=== PATIENT | female | born 1960 | race Caucasian/White ===

== ENCOUNTER 2018-05-05 00:21 | Emergency (ER) | payer BC | END 2018-05-05 01:35 | disposition home or self-care (01) | LOC: FTE 00:21 | DX: J02.9 Acute pharyngitis, unspecified (principal); Z96.642 Presence of left artificial hip joint | CPT/HCPCS: 99283 ==

== ENCOUNTER → 2018-06-03 | Outpatient (CLI) | payer BC ==
[2018-06-03 10:32] LABS: ADD MAN DIFF? NO
[2018-06-03 10:33] LABS: WHITE BLOOD COUNT 4.4 10^3/ul (4.8-10.8)
[2018-06-03 10:33] LABS: BASOPHILS % 0.7 % (0.0-2.0); EOSINOPHILS # 0.1 10^3/ul (0.0-0.5); EOSINOPHILS % 1.6 % (0.0-7.0); HEMATOCRIT 43.8 % (37.0-47.0); HEMOGLOBIN 13.8 g/dl (12.0-16.0); LYMPHOCYTES # 1.1 10^3/ul (0.8-2.9); LYMPHOCYTES % 25.7 % (15.0-51.0); MEAN CORPUSCULAR HEMOGLOBIN 28.5 pg (29.0-33.0); MEAN CORPUSCULAR HGB CONC 31.5 g/dl (32.0-37.0); MEAN CORPUSCULAR VOLUME 90.3 fl (82.0-101.0); MEAN PLATELET VOLUME 9.1 fl (7.4-10.4); MONOCYTE # 0.3 10^3/ul (0.3-0.9); MONOCYTES % 6.4 % (0.0-11.0); NEUTROPHIL # 2.8 10^3/ul (1.6-7.5); NEUTROPHILS % 65.4 % (39.0-77.0); PLATELET COUNT 163 10^3/UL (140-415); RED BLOOD COUNT 4.85 10^6/ul (4.20-5.40); RED CELL DISTRIBUTION WIDTH 13.6 % (11.5-14.5)
[2018-06-03 10:45] LABS: HEMOGLOBIN A1C 5.4 % (0-5.9)
[2018-06-03 10:52] LABS: ALANINE AMINOTRANSFERASE 23 IU/L (13-69); ALBUMIN 4.7 g/dl (3.3-4.9); ALBUMIN/GLOBULIN RATIO 1.46; ALKALINE PHOSPHATASE 70 IU/L (42-121); ANION GAP 11 (5-13); ASPARTATE AMINO TRANSFERASE 29 IU/L (15-46); BILIRUBIN,INDIRECT 0.5 mg/dl (0-1.1); BILIRUBIN,TOTAL 0.5 mg/dl (0.2-1.3); BLOOD UREA NITROGEN 17 mg/dl (7-20); C-REACTIVE PROTEIN 0.7 mg/dl (0.0-0.9); CALCIUM 9.8 mg/dl (8.4-10.2); CARBON DIOXIDE 26 mmol/L (21-31); CHLORIDE 107 mmol/L (97-110); CHOLESTEROL 216 mg/dl (100-200); CREATININE 0.69 mg/dl (0.44-1.00); Estimated GFR > 60 mL/min (>60); GLUCOSE 93 mg/dl (70-220); HDL CHOLESTEROL 72 mg/dl (37-92); LDL CHOLESTEROL,CALCULATED 126 mg/dl; POTASSIUM 4.3 mmol/L (3.5-5.1); SODIUM 144 mmol/L (135-144); TOTAL PROTEIN 7.9 g/dl (6.1-8.1); TRIGLYCERIDES 88 mg/dl (0-149)
[2018-06-03 11:49] LABS: ERYTHROCYTE SEDIMENTATION RATE 13 mm/Hr (0-30)
[2018-06-03 12:16] LABS: T4 (THYROXINE) 13.2 ug/dl (5.5-11.0)
[2018-06-04 14:16] LABS: ANA SCREEN NEGATIVE (NEGATIVE)
== END | disposition home or self-care (01) ==
LOC: LAB 10:06
DX: Z00.00 Encounter for general adult medical examination without abnormal findings (principal)
CPT/HCPCS: 80053; 80061; 82306; 83036; 84436; 84443; 85025; 85651; 86038; 86140

== ENCOUNTER 2018-10-01 10:11 | Emergency (ER) | payer BC | END 2018-10-01 12:31 | disposition home or self-care (01) | LOC: FTE 10:11 | DX: S92.251A Displaced fracture of navicular [scaphoid] of right foot, initial encounter for closed fracture (principal); X50.1XXA Overexertion from prolonged static or awkward postures, initial encounter; Y92.9 Unspecified place or not applicable; Z96.642 Presence of left artificial hip joint | CPT/HCPCS: 29515; 73610-RT; 73630; 99283-25 ==

== ENCOUNTER → 2018-10-19 | Outpatient (CLI) | payer BC | END | disposition home or self-care (01) | LOC: RAD 07:44 | DX: M79.671 Pain in right foot (principal) | CPT/HCPCS: 73630 ==

== ENCOUNTER → 2018-10-19 | Outpatient (CLI) | payer BC ==
[2018-10-19 09:01] LABS: CHOL/HDL RATIO 3.4 RATIO; CHOLESTEROL 198 mg/dl (100-200); HDL CHOLESTEROL 57 mg/dl (37-92); LDL CHOLESTEROL,CALCULATED 112 mg/dl; TRIGLYCERIDES 147 mg/dl (0-149)
[2018-10-19 09:01] LABS: URIC ACID 4.2 mg/dl (3.1-7.9)
== END | disposition home or self-care (01) ==
LOC: LAB 07:37
DX: E78.5 Hyperlipidemia, unspecified (principal); M79.671 Pain in right foot
CPT/HCPCS: 80061; 84560